=== PATIENT | female | born 1965 | race Caucasian/White ===

== ENCOUNTER → 2017-12-14 02:54 | Outpatient (RCR) | payer BC, SELFPAY ==
[2017-11-23] MEDS: Normal Saline Flush 10 ML SYR IVP (10:30)
[2017-11-23 10:59] LABS: Abs Immature Grans 0.01 k/cumm (0.0-0.09); Absolute Basophil Count 0.02 k/cumm (0.0-0.2); Absolute Lymphocyte Count 1.86 k/cumm (1.2-3.4); Absolute Monocyte Count 0.43 k/cumm (0.11-0.7); Basophils % 0.3; Eosinophils % 1.4; HCT 42.1 % (36.0-46.0); HGB 14.5 g/dL (12.0-15.5); Immature Grans % 0.1; Lymphocytes % 26.1; Mean Corp. HGB Concentration 34.4 g/dL (32.0-36.0); Mean Corpuscular Hemoglobin 31.3 pg (27.0-33.0); Mean Corpuscular Volume 90.7 fL (80-95); Mean Platelet Volume 9.3 fL (8.0-11.0); Neutrophils % 66.1; Platelet Count 264 x1000/uL (130-400); RBC 4.64 m/cumm (4.00-5.20); RBC Distribution Width 12.7 % (11.7-14.6); White Blood Cell Count 7.12 k/cumm (4.4-10.8)
[2017-11-23 11:13] LABS: ALT 55 U/L (12-78); AST 33 U/L (15-37); Albumin 4.4 g/dL (3.4-5.0); Alkaline Phosphatase 140 U/L (46-116); Anion Gap 9.6 mmol/L (3-11); BUN 17 mg/dL (7-18); Bilirubin, Total 0.3 mg/dL (0.2-1.0); CO2 28.4 mmol/L (21.0-32.0); CREATININE 0.94 mg/dL (0.55-1.02); Calcium 9.6 mg/dL (8.5-10.1); Chloride 101 mmol/L (98-107); Glucose 98 mg/dL (70-100); Potassium 4.1 mmol/L (3.5-5.1); Sodium 139 mmol/L (136-145); Total Protein 9.1 g/dL (6.4-8.2)
[2017-12-14] MEDS: Normal Saline Flush 10 ML SYR IVP (10:21)
[2017-12-14 10:51] LABS: Abs Immature Grans 0.01 k/cumm (0.0-0.09); Absolute Basophil Count 0.02 k/cumm (0.0-0.2); Absolute Lymphocyte Count 1.56 k/cumm (1.2-3.4); Absolute Monocyte Count 0.37 k/cumm (0.11-0.7); Absolute Neutrophil Count 2.33 k/cumm (1.2-6.7); Basophils % 0.5; Eosinophils % 2.3; HGB 13.9 g/dL (12.0-15.5); Immature Grans % 0.2; Lymphocytes % 35.5; Mean Corp. HGB Concentration 33.9 g/dL (32.0-36.0); Mean Corpuscular Hemoglobin 31.1 pg (27.0-33.0); Mean Corpuscular Volume 91.7 fL (80-95); Mean Platelet Volume 9.6 fL (8.0-11.0); Monocytes % 8.4; Neutrophils % 53.1; Platelet Count 249 x1000/uL (130-400); RBC 4.47 m/cumm (4.00-5.20); RBC Distribution Width 12.4 % (11.7-14.6); White Blood Cell Count 4.39 k/cumm (4.4-10.8)
[2017-12-14 11:06] LABS: ALT 48 U/L (12-78); AST 27 U/L (15-37); Alkaline Phosphatase 128 U/L (46-116); Anion Gap 4.4 mmol/L (3-11); BUN 15 mg/dL (7-18); Bilirubin, Total 0.3 mg/dL (0.2-1.0); CO2 29.6 mmol/L (21.0-32.0); Chloride 103 mmol/L (98-107); Glucose 102 mg/dL (70-100); Potassium 3.9 mmol/L (3.5-5.1); Sodium 137 mmol/L (136-145); Total Protein 8.1 g/dL (6.4-8.2)
== END ==
LOC: INF 11-23 01:20
PROVIDERS: PCP Physician Assistant Medical; Visit Provider Internal Medicine
DX: C50.912 Malignant neoplasm of unspecified site of left female breast (principal); Z45.2 Encounter for adjustment and management of vascular access device
CPT/HCPCS: 36591; 80053; 85025

== ENCOUNTER 2018-01-04 00:52 | Outpatient (RCR) | payer BC, SELFPAY ==
[2018-01-04] MEDS: Heparin 500 UNITS/5 ML SYRINGE (12:45)
[2018-01-04] MEDS: Normal Saline Flush 10 ML SYR 30 ML IVP (12:45)
[2018-01-04 13:18] LABS: Abs Immature Grans 0.01 k/cumm (0.0-0.09); Absolute Basophil Count 0.02 k/cumm (0.0-0.2); Absolute Eosinophil Count 0.16 k/cumm (0.0-0.7); Absolute Lymphocyte Count 2.05 k/cumm (1.2-3.4); Absolute Monocyte Count 0.38 k/cumm (0.11-0.7); Absolute Neutrophil Count 3.19 k/cumm (1.2-6.7); Basophils % 0.3; Eosinophils % 2.8; HCT 41.9 % (36.0-46.0); HGB 14.4 g/dL (12.0-15.5); Immature Grans % 0.2; Lymphocytes % 35.3; Mean Corp. HGB Concentration 34.4 g/dL (32.0-36.0); Mean Corpuscular Volume 90.1 fL (80-95); Mean Platelet Volume 9.4 fL (8.0-11.0); Monocytes % 6.5; Neutrophils % 54.9; Platelet Count 293 x1000/uL (130-400); RBC 4.65 m/cumm (4.00-5.20); RBC Distribution Width 12.2 % (11.7-14.6); White Blood Cell Count 5.81 k/cumm (4.4-10.8)
[2018-01-04 13:31] LABS: ALT 65 U/L (12-78); AST 36 U/L (15-37); Albumin 4.1 g/dL (3.4-5.0); Alkaline Phosphatase 127 U/L (46-116); Anion Gap 9.3 mmol/L (3-11); BUN 17 mg/dL (7-18); Bilirubin, Total 0.2 mg/dL (0.2-1.0); CO2 28.7 mmol/L (21.0-32.0); CREATININE 0.83 mg/dL (0.55-1.02); Calcium 9.2 mg/dL (8.5-10.1); Chloride 103 mmol/L (98-107); Glucose 128 mg/dL (70-100); Potassium 3.6 mmol/L (3.5-5.1); Sodium 141 mmol/L (136-145); Total Protein 8.3 g/dL (6.4-8.2)
== END 2018-01-13 23:59 | disposition home or self-care (01) ==
LOC: INF 00:52
PROVIDERS: PCP Physician Assistant Medical; Visit Provider Internal Medicine
DX: C50.912 Malignant neoplasm of unspecified site of left female breast (principal); Z45.2 Encounter for adjustment and management of vascular access device
CPT/HCPCS: 36591; 80053; 85025

== ENCOUNTER 2018-01-25 01:48 | Outpatient (RCR) | payer BC, SELFPAY ==
[2018-01-25] MEDS: Normal Saline Flush 10 ML SYR IVP (13:05)
[2018-01-25 13:12] LABS: Absolute Basophil Count 0.02 k/cumm (0.0-0.2); Absolute Lymphocyte Count 2.07 k/cumm (1.2-3.4); Absolute Monocyte Count 0.45 k/cumm (0.11-0.7); Basophils % 0.4; Eosinophils % 1.8; HCT 42.3 % (36.0-46.0); HGB 14.6 g/dL (12.0-15.5); Lymphocytes % 37.4; Mean Corp. HGB Concentration 34.5 g/dL (32.0-36.0); Mean Corpuscular Hemoglobin 30.9 pg (27.0-33.0); Mean Corpuscular Volume 89.4 fL (80-95); Mean Platelet Volume 9.3 fL (8.0-11.0); Monocytes % 8.1; Neutrophils % 52.3; Platelet Count 257 x1000/uL (130-400); RBC 4.73 m/cumm (4.00-5.20); RBC Distribution Width 12.1 % (11.7-14.6); White Blood Cell Count 5.54 k/cumm (4.4-10.8)
[2018-01-25 13:26] LABS: ALT 63 U/L (12-78); AST 28 U/L (15-37); Albumin 4.3 g/dL (3.4-5.0); Alkaline Phosphatase 144 U/L (46-116); Anion Gap 9.4 mmol/L (3-11); BUN 14 mg/dL (7-18); Bilirubin, Total 0.3 mg/dL (0.2-1.0); CO2 27.6 mmol/L (21.0-32.0); CREATININE 0.81 mg/dL (0.55-1.02); Calcium 9.4 mg/dL (8.5-10.1); Chloride 103 mmol/L (98-107); Glucose 96 mg/dL (70-100); Potassium 4.1 mmol/L (3.5-5.1); Sodium 140 mmol/L (136-145); Total Protein 8.6 g/dL (6.4-8.2)
== END 2018-02-13 23:59 | disposition home or self-care (01) ==
LOC: INF 01:48
PROVIDERS: PCP Physician Assistant Medical; Visit Provider Internal Medicine
DX: C50.912 Malignant neoplasm of unspecified site of left female breast (principal); Z45.2 Encounter for adjustment and management of vascular access device
CPT/HCPCS: 36591; 80053; 85025

== ENCOUNTER 2018-07-30 14:08 | Outpatient (CLI) | payer BC, SELFPAY ==
[2018-07-30 14:35] LABS: Abs Immature Grans 0.01 k/cumm (0.0-0.09); Absolute Basophil Count 0.01 k/cumm (0.0-0.2); Absolute Eosinophil Count 0.08 k/cumm (0.0-0.7); Absolute Lymphocyte Count 2.02 k/cumm (1.2-3.4); Absolute Monocyte Count 0.48 k/cumm (0.11-0.7); Absolute Neutrophil Count 3.16 k/cumm (1.2-6.7); Basophils % 0.2; Eosinophils % 1.4; HCT 41.3 % (36.0-46.0); HGB 14.5 g/dL (12.0-15.5); Immature Grans % 0.2; Lymphocytes % 35.1; Mean Corp. HGB Concentration 35.1 g/dL (32.0-36.0); Mean Corpuscular Volume 88.4 fL (80-95); Mean Platelet Volume 9.5 fL (8.0-11.0); Monocytes % 8.3; Neutrophils % 54.8; Platelet Count 243 x1000/uL (130-400); RBC 4.67 m/cumm (4.00-5.20); RBC Distribution Width 12.3 % (11.7-14.6); White Blood Cell Count 5.76 k/cumm (4.4-10.8)
[2018-07-30 15:04] LABS: ALT 45 U/L (12-78); AST 27 U/L (15-37); Albumin 4.4 g/dL (3.4-5.0); Alkaline Phosphatase 128 U/L (46-116); Anion Gap 10.2 mmol/L (3-11); BUN 15 mg/dL (7-18); Bilirubin, Total 0.2 mg/dL (0.2-1.0); CO2 29.8 mmol/L (21.0-32.0); CREATININE 0.79 mg/dL (0.55-1.02); Calcium 10.2 mg/dL (8.5-10.1); Chloride 100 mmol/L (98-107); Glucose 105 mg/dL (70-100); Potassium 4.1 mmol/L (3.5-5.1); Sodium 140 mmol/L (136-145); Total Protein 8.4 g/dL (6.4-8.2)
[2018-07-30 19:23] LABS: TSH 0.89 uIU/mL (0.358-3.74)
== END 2018-07-30 14:28 ==
PROVIDERS: PCP Physician Assistant Medical; Visit Provider Internal Medicine
DX: C50.912 Malignant neoplasm of unspecified site of left female breast (principal); Z79.899 Other long term (current) drug therapy; Z17.0 Estrogen receptor positive status [ER+]
CPT/HCPCS: 36415; 80053; 84443; 85025